=== PATIENT | male | born 1980 | race African-American/Black ===

== ENCOUNTER 2018-01-07 09:15 | Inpatient (IN) | payer SELFPAY ==
--- NOTE | 2018-01-07 10:23 | HP ---
COWS - Scale Resting Pulse: 0= OK 80 or Below Sweatin= Chills/Flushing Restless Observation: 1= Difficult to Sit Still Pupil Size: 1= Pupils >than Normal Bone or Joint Aches: 2= Severe Diffuse Aches Runny Nose/ Eye Tearin= Runny Nose/Eyes GI Upset > 30mins: 1= Stomach Cramp Tremor Observation: 1= Tremor [place], Not Seen Yawning Observation: 1= 1-2x During Session Anxiety or Irritability: 2=Irritable/Anxious Goose Flesh Skin: 0=Smooth Skin COWS Score: 12 Admission [facility] Chief Complaint: Heroin withdrawal symptoms. Allergies/Adverse Reactions: Allergies Allergy/AdvReac Type Severity Reaction Status Date / Time No Known Allergies Allergy Verified 01/07/18 09:33 History of Present Illness: Patient presents with Heroin withdrawal symptoms. Patient started sniffing heroin in 04/2017. Sniffs up to 8-10 bags daily. Last time he used heroin was last night. Patient started to feel sick and took one film of suboxone 12mg that was given to him by a friend at 5am. Patient also smokes Marijuana since age 15. Smokes 1 bag per week. Last time he smoked was 2 days ago. Denies significant PMH. Denies SI/HI and suicide attempts. Denies hx of seizures. Exam Limitations: No Limitations - Ebola screening Have you traveled outside of the country in the last 21 days: No Have you had contact with anyone from an Ebola affected area: No Do you have a fever: No - Review of Systems Constitutional: Chills, Night Sweats, Changes in sleep EENT: reports: Nose Congestion Respiratory: reports: No Symptoms reported Cardiac: reports: No Symptoms Reported GI: reports: Diarrhea, Nausea, Poor Fluid Intake, Abdominal cramping : reports: No Symptoms Reported Musculoskeletal: reports: Back Pain, Muscle Pain Integumentary: reports: Sweating Neuro: reports: Tremors Endocrine: reports: No Symptoms Reported Hematology: reports: No Symptoms Reported Psychiatric: reports: Orientated x3, Anxious, Depressed Patient History - Patient Medical History Hx Anemia: No Hx Asthma: No Hx Chronic Obstructive Pulmonary Disease (COPD): No Hx Cancer: No Hx Cardiac Disorders: No Hx Congestive Heart Failure: No Hx Hypertension: No Hx Hypercholesterolemia: No Hx Pacemaker: No HX Cerebrovascular Accident: No Hx Seizures: No Hx Dementia: No Hx Diabetes: No Hx Gastrointestinal Disorders: No Hx Liver Disease: No Hx Genitourinary Disorders: No Hx Sexually Transmitted Disorders: No Hx Renal Disease (ESRD): No Hx Thyroid Disease: No Hx Human Immunodeficiency Virus (HIV): No Hx Hepatitis C: No Hx Depression: No Hx Suicide Attempt: No Hx Bipolar Disorder: No Hx Schizophrenia: No - Patient Surgical History Past Surgical History: No Hx Neurologic Surgery: No Hx Cataract Extraction: No Hx Cardiac Surgery: No Hx Lung Surgery: No Hx Breast Surgery: No Hx Breast Biopsy: No Hx Abdominal Surgery: No Hx Appendectomy: No Hx Cholecystectomy: No Hx Genitourinary Surgery: No Hx Orthopedic Surgery: No Anesthesia Reaction: No - PPD History Previous Implant?: Yes Documented Results: Negative w/o proof Implanted On Prior [facility] Admission?: No PPD to be Administered?: Yes - Smoking Cessation Smoking history: Current every day smoker Aproximately how many cigarettes per day: 20 Hx Chewing Tobacco Use: No Initiated information on smoking cessation: Yes 'Breaking Loose' booklet given: 01/07/18 - Substance & Tx. History Hx Alcohol Use: No Hx Substance Use: Yes Substance Use Type: Heroin, Marijuana Hx Substance Use Treatment: No - Substances Abused Heroin Route: Inhalation Frequency: Daily Amount used: 8-10 bags Age of first use: 37 Date of Last Use: 01/07/18 suboxone Route: SL Frequency: 1-3 times last 30 days Amount used: 12 mg./3 mg. Age of first use: 37 Date of Last Use: 01/07/18 Family Disease History - Family Disease History Family History: Denies Admission Physical Exam [facility] - Physical General Appearance: Yes: Nourished, Appropriately Dressed, Tremorous, Sweating, Anxious HEENTM: Yes: EOMI, Hearing grossly Normal, Normocephalic, Normal Voice, [place], Pharynx Normal, Nasal Congestion Respiratory: Yes: Chest Non-Tender, Lungs Clear, Normal Breath Sounds, No Respiratory Distress, No Accessory Muscle Use Neck: Yes: No masses,lesions,Nodules, Supple Breast: Yes: Breast Exam Deferred Cardiology: Yes: Regular Rhythm, Regular Rate, S1, S2 Abdominal: Yes: Normal Bowel Sounds, Non Tender, Soft Genitourinary: Yes: Within Normal Limits Back: Yes: Muscle Spasm Musculoskeletal: Yes: full range of Motion, Gait Steady, Back pain, Muscle Pain Extremities: Yes: Normal Inspection, Normal Range of Motion, Non-Tender, Tremors 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 NML intact, Fully Oriented, Alert, Motor Strength 5/5, Normal Response, Depressed Affect Integumentary: Yes: Normal Color, Warm, Moist Lymphatic: Yes: Within Normal Limits - Diagnostic (1) Opioid dependence with withdrawal Current Visit: Yes Status: Acute (2) Nicotine dependence Current Visit: Yes Status: Chronic Qualifiers: Nicotine product type: cigarettes Substance use status: uncomplicated Qualified Code(s): F17.210 - Nicotine dependence, cigarettes, uncomplicated (3) Marijuana dependence Current Visit: Yes Status: Chronic (4) Depressed affect Current Visit: Yes Status: Suspected (5) Anxiety Current Visit: Yes Status: Suspected Cleared for Admission [facility] - Detox or Rehab [facility] Level of Care: Medically Managed Detox Regimen/Protocol: Methadone
[2018-01-07] MEDS ORDERED: hydrOXYzine PAMOATE 50 MG CAPSULE (FP) PO PRN (10:38)
[2018-01-07] MEDS ORDERED: ACETAMINOPHEN 325 MG TABLET (FP) PO PRN (10:38)
[2018-01-07] MEDS ORDERED: P-EPHED 60MG/TRIPROLIDI 2.5MG TABLET PO PRN (10:38)
[2018-01-07] MEDS ORDERED: guaiFENesin/D-METHORPHAN HB 10 ML UNIT-DOSE CUPS PO PRN (10:38)
[2018-01-07] MEDS ORDERED: MAGNESIUM CITRATE 300 ML BOTTLE PO PRN (10:38)
[2018-01-07] MEDS ORDERED: NICOTINE POLACRILEX 2 MG GUM BUC PRN (10:38)
[2018-01-07] MEDS ORDERED: LOPERAMIDE HCL 2 MG CAPSULE PO PRN (10:38)
[2018-01-07] MEDS ORDERED: MAG HYDROX/AL HYDROX/SIMETH 30 ML UNIT-DOSE CUP PO PRN (10:38)
[2018-01-07] MEDS ORDERED: IBUPROFEN 400 MG TABLET (FP) PO PRN (10:38)
[2018-01-07] MEDS ORDERED: MAGNESIUM HYDROX 2400MG/30ML ORAL SUSPENSION 30 ML CUP PO PRN (10:38)
[2018-01-07] MEDS ORDERED: MENTHOL/PHENOL 1 EACH UD MM PRN (10:38)
[2018-01-07 10:50] VITALS: BMI 33.2
[2018-01-07] MEDS ORDERED: METHADONE HCL 10 MG TABLET (FOR DETOX USE ONLY) PO ONE ×2 (12:45→23:00)
[2018-01-07] MEDS: diazePAM 5 MG TABLET PO PRN ×3 (13:22→22:19)
--- NOTE | 2018-01-07 15:50 | EKG ---
Test Reason : Blood Pressure : / mmHG Vent. Rate : 059 BPM Atrial Rate : 059 BPM P-R Int : 120 ms QRS Dur : 082 ms QT Int : 396 ms P-R-T Axes : 045 020 -31 degrees QTc Int : 392 ms SINUS BRADYCARDIA WITH SINUS ARRHYTHMIA ABNORMAL ECG NO PREVIOUS ECGS AVAILABLE Confirmed by TODD RATLIFF, LAURITA ([id number]) on 01/07/2018 3:49:51 PM Referred By: Confirmed By:LAURITA BROOKS MD
--- NOTE | 2018-01-07 16:34 | CONSULT ---
[facility] Psychiatric Consult - Data Date of interview: 01/07/18 Admission source: [facility] Identifying data: Patient is a 37 year old single male, father of two, unemployed, and currently homeless. This is patient's first admission to detox at [facility]. Pt. admitted to for opiate dependence. Substance Abuse History: Smoking Cessation. Smoking history: Current every day smoker. Aproximately how many cigarettes per day: 20. Hx Chewing Tobacco Use: No. Initiated information on smoking cessation: Yes. 'Breaking Loose' booklet given: 01/07/18. - Substance & Tx. History. Hx Alcohol Use: No. Hx Substance Use: Yes. Substance Use Type: Heroin, Marijuana. Hx Substance Use Treatment: No. - Substances Abused. Heroin. Route: Inhalation. Frequency: Daily. Amount used: 8-10 bags. Age of first use: 37. Date of Last Use: 01/07/18. suboxone. Route: SL. Frequency: 1-3 times last 30 days. Amount used: 12 mg./ 3 mg. Age of first use: 37. Date of Last Use: 01/07/18 Medical History: Denies. Psychiatric History: Patient denies h/o psychiatric hospitalization, outpatient care, and suicide attempt. Physical/Sexual Abuse/Trauma History: Denies. Mental Status Exam - Mental Status Exam Alert and Oriented to: Time, Place, Person Cognitive Function: Good Patient Appearance: Well Groomed Mood: Euthymic Affect: Mood Congruent Patient Behavior: Cooperative Speech Pattern: Appropriate Voice Loudness: Normal Thought Process: Intact, Goal Oriented Thought Disorder: Not Present Hallucinations: Denies Suicidal Ideation: Denies Homicidal Ideation: Denies Insight/Judgement: Poor Sleep: Fair Appetite: Fair Muscle strength/Tone: Normal Gait/Station: Normal Psychiatric Findings - Problem List ([place] 1, 2,3) (1) Opioid dependence with withdrawal Current Visit: Yes Status: Acute (2) Nicotine dependence Current Visit: Yes Status: Chronic Qualifiers: Nicotine product type: cigarettes Substance use status: uncomplicated Qualified Code(s): F17.210 - Nicotine dependence, cigarettes, uncomplicated (3) Substance induced mood disorder Current Visit: Yes Status: Suspected - Initial Treatment Plan Initial Treatment Plan: Psychoeducation provided. Detoxification in progress. Observation.
[2018-01-07 18:40] LABS: URINE APPEARANCE TURBID; URINE BILIRUBIN NEGATIVE (<2.0 mg/dL); URINE COLOR YELLOW; URINE GLUCOSE (UA) NEGATIVE (NEGATIVE); URINE KETONE NEGATIVE (NEGATIVE); URINE NITRITE NEGATIVE (NEGATIVE); URINE PROTEIN NEGATIVE (NEGATIVE); URINE UROBILINOGEN NEGATIVE mg/dL (0.2-1.0)
[2018-01-07 18:41] LABS: URINE LEUK ESTERASE 2+ (NEGATIVE)
[2018-01-07 18:56] LABS: CALCIUM OXALATE CRYSTALS FEW /hpf (NONE SEEN); URINE MUCUS MANY
[2018-01-07] MEDS ORDERED: MELATONIN 5 MG TABLETS PO PRN (22:00)
[2018-01-07] MEDS ORDERED: THIAMINE HCL 100 MG TABLET (FP) PO SCH (22:00)
[2018-01-08] MEDS: diazePAM 5 MG TABLET PO PRN (05:18)
[2018-01-08 07:01] VITALS: BP 128/77; PULSE 81; TEMP 97.7
--- NOTE | 2018-01-08 08:22 | PN ---
[facility] COWS - Scale Resting Pulse: 1= OK 81-100 Sweatin= Chills/Flushing Restless Observation: 1= Difficult to Sit Still Pupil Size: 1= Pupils >than Normal Bone or Joint Aches: 2= Severe Diffuse Aches Runny Nose/ Eye Tearin= Nasal Congestion GI Upset > 30mins: 2= Nausea/Diarrhea Tremor Observation of Outstretched Hands: 2= Slight Tremor Visible Yawning Observation: 1= 1-2x During Session Anxiety or Irritability: 2=Irritable/Anxious Goose Flesh Skin: 0=Smooth Skin COWS Score: 14 [facility] Progress Note (SOAP) Subjective: alert,irritable,anxious,interrupted sleep,pain in the body Objective: 01/08/18 08:19 Vital Signs Temperature 97.7 F 01/08/18 07:00 Pulse Rate 81 01/08/18 07:00 Respiratory Rate 18 01/08/18 07:00 Blood Pressure 128/77 01/08/18 07:00 O2 Sat by Pulse Oximetry (%) ekg sinus bradycardia with sinus arrhythmia inveted t in 3,avf,v3 to v6 rate 59/min no chest pain,no sob,no dizziness labs pending Assessment: 01/08/18 08:22 withdrawal symptom Plan: continue detox
--- NOTE | 2018-01-08 08:36 | DS ---
[facility] Detox Discharge Summary Admission Date: 01/07/18 Discharge Date: 01/08/18 - History Present History: Cannabis Dependence, Opioid Dependence Additional Comments: patient did not want to complete treatment due to personal issues,all attempt to convince patient to stay with no avail, advice follow up with primary care physician for medical follow up or go to nearest er if any emergency medical problem seen by counselor,risk and benefit with withdrawal explained to patient Pertinent Past History: nicotine dependence - Physical Exam Results Vital Signs: Vital Signs Temperature 97.7 F 01/08/18 07:00 Pulse Rate 81 01/08/18 07:00 Respiratory Rate 18 01/08/18 07:00 Blood Pressure 128/77 01/08/18 07:00 O2 Sat by Pulse Oximetry (%) Pertinent Admission Physical Exam Findings: withdrawal signs and symptom Vital Signs Temperature 97.7 F 01/08/18 07:00 Pulse Rate 81 01/08/18 07:00 Respiratory Rate 18 01/08/18 07:00 Blood Pressure 128/77 01/08/18 07:00 O2 Sat by Pulse Oximetry (%) Laboratory Last Values Urine Color Yellow 01/07/18 13:34 Urine Appearance Turbid 01/07/18 13:34 Urine pH 5.0 (5.0-8.0) 01/07/18 13:34 Ur Specific [place] 1.024 (1.001-1.035) 01/07/18 13:34 Urine Protein Negative (NEGATIVE) 01/07/18 13:34 Urine Glucose (UA) Negative (NEGATIVE) 01/07/18 13:34 Urine Ketones Negative (NEGATIVE) 01/07/18 13:34 Urine Blood Negative (NEGATIVE) 01/07/18 13:34 Urine Nitrite Negative (NEGATIVE) 01/07/18 13:34 Urine Bilirubin Negative (<2.0 mg/dL) 01/07/18 13:34 Urine Urobilinogen Negative mg/dL (0.2-1.0) 01/07/18 13:34 Ur Leukocyte Esterase 2+ (NEGATIVE) H 01/07/18 13:34 Urine WBC (Auto) 33 /hpf (3-5) 01/07/18 13:34 Urine RBC (Auto) 1 /hpf (0-3) 01/07/18 13:34 Calcium Oxalate Crystal Few /hpf (NONE SEEN) 01/07/18 13:34 Urine Mucus Many 01/07/18 13:34 - Medication Discharge Medications: Ambulatory Orders NK [No Known Home Medication] 10/18/14 - Diagnosis (1) Opioid dependence with withdrawal Current Visit: Yes Status: Acute (2) Marijuana dependence Current Visit: Yes Status: Chronic (3) Nicotine dependence Current Visit: Yes Status: Chronic Qualifiers: Nicotine product type: cigarettes Substance use status: uncomplicated Qualified Code(s): F17.210 - Nicotine dependence, cigarettes, uncomplicated (4) Anxiety Current Visit: Yes Status: Suspected - AMA Did Patient Leave Against Medical Advice: Yes
[2018-01-08] MEDS ORDERED: METHADONE HCL 10 MG TABLET (FOR DETOX USE ONLY) PO ONE (10:00)
[2018-01-08] MEDS ORDERED: PRENATAL VITAMINS W/ FOLIC ACID TABLET (FP) PO SCH (10:00)
[2018-01-09] MEDS ORDERED: METHADONE HCL 5 MG TABLET (FOR DETOX USE ONLY) PO ONE (10:00)
[2018-01-10] MEDS ORDERED: METHADONE HCL 5 MG TABLET (FOR DETOX USE ONLY) PO ONE (10:00)
[2018-01-11] MEDS ORDERED: METHADONE HCL 10 MG TABLET (FOR DETOX USE ONLY) PO ONE (10:00)
[2018-01-12] MEDS ORDERED: METHADONE HCL 5 MG TABLET (FOR DETOX USE ONLY) PO ONE (06:00)
== END 2018-01-08 08:45 | disposition left against medical advice (07) | DRG 770 ==
LOC: YASAS 09:15 → Y6N 12:41
PROVIDERS: ADMIT Surgery; ATTEND Surgery
PROC: HZ2ZZZZ Detoxification Services for Substance Abuse Treatment (ICD-10-PCS; principal; 2018-01-07)
DX: F11.23 Opioid dependence with withdrawal (principal); F12.20 Cannabis dependence, uncomplicated; F17.210 Nicotine dependence, cigarettes, uncomplicated; F32.9 Major depressive disorder, single episode, unspecified; F41.9 Anxiety disorder, unspecified; F19.24 Other psychoactive substance dependence with psychoactive substance-induced mood disorder; Z59.0 Homelessness
CPT/HCPCS: 81003; 81015; 93005; 93010